=== PATIENT | female | born 1955 | race Caucasian/White ===

== ENCOUNTER 2018-02-02 18:43 | Inpatient (IN) | payer BC ==
[2018-02-02] VITALS (7 sets, daily range): BP systolic 152–183; BP diastolic 86–102
[~2018-02-02] VITALS: Ht 154.9 cm; Wt 79.2 kg
[2018-02-02 19:00] LABS: BASOPHIL (%) 0.7 % (0-1); BASOPHIL COUNT 0.1 K/uL (0-0.1); EOSINOPHIL (%) 1.2 % (0-5); EOSINOPHIL COUNT 0.1 K/uL (0-0.3); HEMATOCRIT 40.7 % (36.0-46.0); HEMOGLOBIN 14.2 G/DL (11.9-15.5); IMMATURE GRANULOCYTE (%) 0.3 % (0.0-0.7); LYMPHOCYTE (%) 25.4 % (15-42); LYMPHOCYTE COUNT 1.9 K/uL (1.0-2.8); MCH 33.2 PG (29.0-34.0); MCHC 34.9 G/DL (30.0-36.0); MCV 95.1 FL (83-99); MONOCYTE (%) 7.3 % (3-12); MONOCYTE COUNT 0.6 K/uL (0-0.8); NEUTROPHIL (%) 65.1 % (45-76); NEUTROPHIL COUNT 4.9 K/uL (1.8-6.4); PLATELET COUNT 247 K/uL (156-360); RBC DIS.WIDTH-CV 11.8 % (11.8-14.6); RBC DIS.WIDTH-SD 40.6 % (39-53); RED BLOOD COUNT 4.28 M/uL (3.80-5.20); WHITE BLOOD COUNT 7.5 K/uL (4.1-10.2)
[2018-02-02 19:12] LABS: AMYLASE 39 IU/L (1-118); CHLORIDE 102 mEq/L (99-109); POTASSIUM 3.9 mEq/L (3.7-5.4); SODIUM 138 mEq/L (136-147)
[2018-02-02 19:13] LABS: PTT 27.8 SEC (25-37)
[2018-02-02 19:14] LABS: GLUCOSE 335 mg/dL (70-99)
[2018-02-02 19:17] LABS: CREATININE 0.8 mg/dL (0.6-1.3); GFR ESTIMATE (CALCULATED) > 59 mL/min/; SERUM ETHYL ALCOHOL < 10 mg/dL
[2018-02-02 19:18] LABS: UREA NITROGEN (BUN) 13 mg/dL (9-23)
[2018-02-02 19:20] LABS: LIPASE 19 U/L (1.0-51.0)
[2018-02-02 19:25] LABS: TROP-I INTERPRETATION POSITIVE
[2018-02-02 20:29] LABS: TROPONIN-I 6.11 ng/mL (0.0-0.30)
[2018-02-03] VITALS (19 sets, daily range): BP systolic 111–172; BP diastolic 67–113
[2018-02-03 01:27] LABS: TROP-I INTERPRETATION POSITIVE
[2018-02-03 01:29] LABS: TROPONIN-I 6.03 ng/mL (0.0-0.30)
[2018-02-03 06:24] LABS: BASOPHIL (%) 0.5 % (0-1); EOSINOPHIL (%) 0.5 % (0-5); HEMOGLOBIN 12.7 G/DL (11.9-15.5); IMMATURE GRANULOCYTE (%) 0.4 % (0.0-0.7); LYMPHOCYTE (%) 16.3 % (15-42); LYMPHOCYTE COUNT 1.3 K/uL (1.0-2.8); MCH 31.2 PG (29.0-34.0); MCHC 33.4 G/DL (30.0-36.0); MCV 93.4 FL (83-99); MONOCYTE (%) 6.7 % (3-12); MONOCYTE COUNT 0.6 K/uL (0-0.8); NEUTROPHIL (%) 75.6 % (45-76); NEUTROPHIL COUNT 6.2 K/uL (1.8-6.4); PLATELET COUNT 273 K/uL (156-360); RBC DIS.WIDTH-CV 11.8 % (11.8-14.6); RBC DIS.WIDTH-SD 40.3 % (39-53); RED BLOOD COUNT 4.07 M/uL (3.80-5.20); WHITE BLOOD COUNT 8.2 K/uL (4.1-10.2)
[2018-02-03 06:44] LABS: TROP-I INTERPRETATION POSITIVE
[2018-02-03 06:57] LABS: CHLORIDE 105 MEQ/L (99-109); CREATININE 0.5 MG/DL (0.6-1.3); GFR ESTIMATE (CALCULATED) > 59 mL/min/; GLUCOSE 315 mg/dL (70-99); POTASSIUM 4.2 MEQ/L (3.7-5.4); SODIUM 139 MEQ/L (136-147); UREA NITROGEN (BUN) 9 mg/dL (9-23)
[2018-02-03 09:53] LABS: HDL CHOLESTEROL 35 MG/DL (Desirable>=50); LDL CHOLESTEROL 142 mg/dL (Desirable<100); NON-HDL CHOLESTEROL 167 mg/dL (Desirable<160); TOTAL CHOLESTEROL 202 mg/dL (Desirable<200); TRIGLYCERIDES 127 MG/DL (Normal: <150)
[2018-02-03 12:46] LABS: TROP-I INTERPRETATION POSITIVE
[2018-02-04 03:32] VITALS: BP 129/70
[2018-02-04 08:05] VITALS: BP 156/74
[2018-02-04 09:11] LABS: HEMOGLOBIN A1c (GLYCOHEMOGLOB) 9.2 % (Below 5.7)
[2018-02-04] MEDS ORDERED: LOSARTAN POTASS50 MG PO (09:21)
[2018-02-04] MEDS ORDERED: BRILINTA90 MG PO (09:21)
[2018-02-04] MEDS ORDERED: LOPRESSOR50 MG PO (09:21)
[2018-02-04] MEDS ORDERED: ASPIR-LOW81 MG PO (09:21)
[2018-02-04] MEDS ORDERED: ATORVASTATIN CA40 MG PO (09:21)
[2018-02-04] MEDS ORDERED: NITROGLYCERIN0.4 MG SL (11:10)
[2018-02-04] MEDS ORDERED: FUROSEMIDE20 MG PO (11:10)
[2018-02-04] MEDS ORDERED: METFORMIN HCL850 MG PO (11:10)
[2018-02-04] MEDS ORDERED: CARVEDILOL25 MG PO (11:10)
[2018-02-04 12:27] VITALS: BP 143/83
[2018-02-04 15:43] VITALS: BP 191/94
== END 2018-02-04 21:57 | disposition home health service (06) | DRG 247 ==
LOC: EME 18:43 → ENRESERV 18:47 → EME 19:24 → CATH 19:31 → 4EAST 19:32 → 2SOUTH 19:32 → 4WEST 20:23 → ENRESERV 02-03 10:04 → 4EAST 02-03 18:10 → ENPENDDIS 02-04 → 4EAST 02-04 21:57
PROVIDERS: Emergency Medicine; Internal Medicine; Internal Medicine Cardiovascular Disease
DX: I21.02 ST elevation (STEMI) myocardial infarction involving left anterior descending coronary artery (principal); E78.1 Pure hyperglyceridemia; E66.9 Obesity, unspecified; E11.65 Type 2 diabetes mellitus with hyperglycemia; I10 Essential (primary) hypertension; I25.10 Atherosclerotic heart disease of native coronary artery without angina pectoris; I25.5 Ischemic cardiomyopathy; Z68.32 Body mass index [BMI] 32.0-32.9, adult
CPT/HCPCS: 71045; 80048; 80061; 81003; 82150; 82948; 83036; 83690; 84484; 85025; 85347; 85610; 85730; 86850; 86900; 86901; 87641; 93005; 93306; 99281; 99285; C1725; C1769; C1874; C1887; G0480; J0153; J0461; J1644; J1815; J2250; J2405; J3246; J7030